=== PATIENT | female | born 1965 | race Caucasian/White ===

== ENCOUNTER 2021-04-04 11:49 | Emergency (ER) | payer OTHER, SELFPAY ==
[~2021-04-04] VITALS: Ht 160 cm; Wt 61.2 kg
[~2021-04-04 11:49] MED LIST: LORA10TA7 PO
--- NOTE | 2021-04-04 11:50 | NUR ---
Pt triaged and placed in tent.
--- NOTE | 2021-04-04 11:55 | NUR ---
Pt walked in to ER with c/o SOB x3 weeks, reports testing + for Covin on 03/14 and treated with a z-pack. O2 97% on RA, other v/s stable, no acute distress noted.
[2021-04-04 12:05] VITALS: BP_SYST 136
--- NOTE | 2021-04-04 12:05 | NUR ---
ER Dr. Castañeda at bedside examining patient.
--- NOTE | 2021-04-04 12:15 | NUR ---
Assumed care of patient. COVID/influenza swabs collected at bedside and sent to lab.
--- NOTE | 2021-04-04 12:31 | NUR ---
Xray at bedside to complete exams
[2021-04-04 12:32] LABS: BASOPHILS % (AUTO) 0.1 % (0.0-2.0); EOSINOPHILS % (AUTO) 0.1 % (0.0-4.0); HEMOGLOBIN 12.8 g/dL (12.0-16.0); LYMPHOCYTES # (AUTO) 0.5 K/uL (1.0-5.5); LYMPHOCYTES % (AUTO) 10.4 % (20.5-51.5); MEAN CORPUSCULAR HEMOGLOBIN 29 pg (27-31); MEAN CORPUSCULAR HGB CONC 34 % (32-36); MEAN CORPUSCULAR VOLUME 87 fL (79.0-98.0); MONOCYTES # (AUTO) 0.4 K/uL (0.0-1.0); NEUTROPHILS # (AUTO) 3.6 K/uL (1.8-7.7); NEUTROPHILS % (AUTO) 81.4 % (40.0-70.0); PLATELET COUNT (AUTO) 211 K/uL (130-430); RED BLOOD CELL COUNT(AUTO) 4.36 MIL/uL (4.2-6.2); RED CELL DISTRIBUTION WIDTH 13.2 % (9.0-15.0); WHITE BLOOD COUNT (AUTO) 4.4 K/uL (4.8-10.8)
[2021-04-04 12:38] LABS: CALCIUM 9.2 mg/dL (8.4-11.0); CREATININE 1.13 mg/dL (0.55-1.30); POTASSIUM 3.5 mmol/L (3.5-5.1)
[2021-04-04 12:42] LABS: PROTHROMBIN TIME 10.4 SECS (9.5-12.5)
[2021-04-04 12:44] LABS: ALBUMIN 3.1 g/dL (3.4-4.8); TOTAL BILIRUBIN 0.5 mg/dL (0.0-1.0)
--- NOTE | 2021-04-04 13:50 | NUR ---
# 20 gauge angiocath placed to L AC. Use of asceptic technique. Opsite placed over site. Blood return noted. Blood for lab drawn from site. Flushed with 10 cc of normal saline. No evidence of infiltration noted. Patient tolerated well.
--- NOTE | 2021-04-04 14:30 | NUR ---
Per Dr Brown, CTA on hold due to patient allergy to "sea shell."
--- NOTE | 2021-04-04 14:34 | NUR ---
RT called per RN to obtain ABG per Dr Brown's order; RT at bedside
[2021-04-04] MEDS ORDERED: HYDROXYCHLOROQUINE SULFATE 200 MG TABLET PO ONE (14:45)
[2021-04-04] MEDS ORDERED: IVERMECTIN 3 MG TABLET PO ONE (14:45)
[2021-04-04] MEDS ORDERED: CHOLECALCIFEROL (VITAMIN D3) 5,000 UNIT TABLET PO ONE (14:45)
[2021-04-04] MEDS ORDERED: ZINC50TA69 PO (15:12)
[2021-04-04] MEDS ORDERED: IVER3TAB PO (15:12)
[2021-04-04] MEDS ORDERED: DEC4 PO (15:12)
[2021-04-04] MEDS ORDERED: VITD2000 PO (15:12)
[2021-04-04] MEDS ORDERED: DEXAMETHASONE SOD PHOSPHATE 4 MG/ML VIAL IVP ONE (15:15)
--- NOTE | 2021-04-04 15:42 | NUR ---
Dr. Brown at bedside discussing results.
[2021-04-04 15:46] VITALS: BP_SYST 127
--- NOTE | 2021-04-04 15:46 | NUR ---
Patient given written and verbal discharge instructions and verbalizes understanding. ER MD discussed with patient the results and treatment provided. Patient in stable condition. ID arm band removed. IV catheter removed intact and dressing applied, no active bleeding. Rx of DECADRON, IVERMECTIN, VITAMIN D3 AND ZINC given. Patient educated on pain management and to follow up with PMD. Pain Scale 0/10 Opportunity for questions provided and answered. Medication side effect fact sheet provided.
== END 2021-04-04 15:46 | disposition home or self-care (01) ==
LOC: SED 11:49
DX: U07.1 COVID-19 (principal); R06.02 Shortness of breath; Z91.013 Allergy to seafood; Z91.018 Allergy to other foods
CPT/HCPCS: 36415; 36600; 71045; 80053; 82803; 83605; 83880; 84484; 84703; 85025; 85379; 85610; 85730; 86710; 87426; 93005; 99285; J1100